=== PATIENT | female | born 1975 | race Caucasian/White ===

== ENCOUNTER 2019-06-07 12:52 | Inpatient (IN) ==
[2019-06-07] MEDS ORDERED: ONDANSETRON INJ 2 MG/ML 2 ML VIAL IV PRN ×2 (14:27→17:36)
[2019-06-07] MEDS ORDERED: MAGNESIUM HYDROXIDE SUSP 30 ML UDC PO PRN (14:27)
[2019-06-07] MEDS ORDERED: ALUMINUM/MAGNESIUM SUSP 30 ML UDC PO PRN (14:27)
[2019-06-07] MEDS ORDERED: ZOLPIDEM TARTRATE 5 MG TAB PO PRN (14:27)
[2019-06-07 16:33] LABS: Basophils # (auto) 0.02 K/uL (0-0.2); Basophils % (auto) 0.3 %; Eosinophils # (auto) 0.15 K/uL (0-0.5); Eosinophils % (auto) 2.1 %; Hematocrit (blood only) 35.4 % (37-47); Hemoglobin 11.9 g/dL (12.0-16.0); Immature Granulocytes # (auto) 0.01 K/uL (0.00-0.02); Immature Granulocytes % (auto) 0.1 %; Lymphocytes # (auto) 1.98 K/uL (1.2-3.4); Lymphocytes % (auto) 28.2 %; Mean Corpuscular Hemoglobin 29.5 pg (25-34); Mean Corpuscular Volume 87.8 fL (80-100); Monocytes # (auto) 0.66 K/uL (0.11-0.59); Monocytes % (auto) 9.4 %; Neutrophils # (auto) 4.19 K/uL (1.4-6.5); Neutrophils % (auto) 59.9 %; Platelet Count 374 K/uL (130-400); RDW Coefficient of Variation 13.9 % (11.5-14.5); RDW Standard Deviation 45.1 fL (36.4-46.3); Red Blood Count 4.03 M/uL (4.2-5.4); White Blood Count 7.01 K/uL (4.8-10.8)
[2019-06-07 16:44] LABS: Mean Corpuscular Hgb Conc 33.6 g/dL (32-36)
[2019-06-07 16:55] LABS: Alanine Aminotransferase 746 U/L (12-78); Amylase 59 U/L (25-115); Aspartate Aminotransferase 246 U/L (15-37); BUN Creatinine Ratio 8.4 (10-20); Blood Urea Nitrogen 4 mg/dl (7-18); Calcium 8.6 mg/dl (8.5-10.1); Carbon Dioxide 25 mmol/L (21-32); Chloride 109 mmol/L (98-107); Est GFR (African American) 134.6; Est GFR (Non-African American) 116.1; Glucose 85 mg/dl (70-99); Lipase 138 U/L (73-393); Potassium 4.2 mmol/L (3.5-5.1); Sodium 139 mmol/L (136-145)
[2019-06-07 17:06] LABS: Albumin Globulin Ratio 0.8 (0.9-2); Alkaline Phosphatase 294 U/L (45-117); Bilirubin,Total 1.6 mg/dl (0.2-1); Globulin 3.9 gm/dl (2.5-4.0); NT Pro B Type Natriuretic Pept 450 pg/ml (0-450); Total Protein 6.9 gm/dl (6.4-8.2)
--- NOTE | 2019-06-07 17:07 | History & Physical Report ---
Date of Service June 07, 2019 Assessment & Plan (1) Choledocholithiasis: Admit to PCU on telemetry Vital signs every 4 hours Replenish electrolytes Keep n.p.o. GI consult Trend down transaminases Check for MRCP Hold medical anticoagulation until GI evaluation and clarified if patient will need surgery or not Pain management and antinausea management. Gentle IV fluid hydration SCD and teds Full code Present on Admission?: Yes (2) Acute cholecystitis: As the above Waiting for MRCP results Consult general surgery Present on Admission?: Yes (3) Cerebellar atrophy: Stable, patient reports not taking any medication at home. Gets around in the wheelchair. Present on Admission?: Yes (4) Anemia: H&H 11.9/35.4. Not clear origin of anemia at this time. Will check iron studies and B12 and folate. Treatment to follow. Present on Admission?: Yes History of Present Illness Chief Complaint: Abdominal pain, acute cholecystitis possibly cholangitis. Primary Care Provider: Luke Sullivan MD 43 years old female with past medical history of cerebellar atrophy is direct admit from [facility] with concern that patient has acute cholecystitis and cholangitis. Patient was admitted to the hospital at [facility] with transaminitis AST 508, ALT 925, and bilirubin 2.3. While CT scan did not reveal acute cholecystitis right upper quadrant ultrasound was significant for edematous gallbladder and possible cholangitis. The case was discussed with Dr. Mila Bender orthotics prosthetics technician and he recommended patient to be transferred for MRCP and possibly ERCP if stone is to be found in the ducts. Patient denies fever chills, chest pain, shortness of breath, abdominal pain at this time but she said she had severe abdominal pain last time., Frequency, urgency, hematemesis, hematuria, dysuria. Due to cerebral atrophy that has been ongoing for several years patient gets around in the wheelchair. Labs are reviewed and showed viable cell count of 7.01, hemoglobin 11.9, hematocrit 35.4, platelets 374, sodium 139, potassium 4.2, chloride 109, BUN 4, creatinine 0.51, GFR 116, lactate 1, total bilirubin 1.6, AST 246, ALT 746, alkaline phosphatase 294, BNP 450, lipase 138, TSH 1.76. MRCP ordered and pending. Will consult gastroenterology for acute cholecystitis possibly acute cholangitis elevated transaminases and bilirubin. Patient admitted to PCU on telemetry. Past Med/Surg History Social History Communication Ability: Effective Adjuster Piano Action Required: No Beliefs That Will Affect Care: None Current Living Situation: Family Other Information That Helps Us Care for You: No Feels Safe at Home: Yes Safety Concerns: Feels Safe At This Time Smoking Status: Never smoker Hx Alcohol Use: No Hx Substance Use: No Review of Systems Review of Systems: All systems reviewed & are unremarkable except as noted in HPI & below Physical Exam Constitutional: WD/WN, vitals as above well developed Eyes: PERRL, conjunctivae normal, anicteric sclerae ENMT: external ear and nose normal, oropharynx normal Neck: trachea midline, no thyromegaly Respiratory: normal respiratory effort, lungs clear to auscultation Cardiovascular: RRR, no murmur, no edema Heart Sounds: normal S1 and normal S2 Vessels: dorsalis pedis pulses present Gastrointestinal (Abdomen): normal bowel sounds, soft, nontender, no hepatosplenomegaly Inspection/Auscultation: normal bowel sounds Musculoskeletal: Due to cerebellar atrophy patient has chronic ataxia, scattered speech, jerking movements of the legs and arms. Patient also has contracture of her wrists bilaterally Skin: no rashes, warm and dry Neurologic: Due to cerebellar atrophy patient has chronic ataxia, scattered speech, jerking movements of the legs and arms. Patient also has contracture of her wrists bilaterally Psychiatric: A+Ox3, euthymic affect Lymphatic: no cervical or axillary lymphadenopathy Results & Data Vital Signs (Past 12 Hours) Vital Signs Temp Pulse Pulse Resp BP Pulse Ox 06/07/19 14:27 36.8 C 80 68 20 128/89 98 Code Status & VTE Plan Code Status Full code VTE Prophylaxis Plan VTE Prophylaxis will be ordered: No PG Care Time/CCT Total # of Minutes Spent Total Time Spent with Patient: Total time spent is greater than 50% in coordination of care (as documented) at patient's floor/unit and/or counseling patient:
[2019-06-07] MEDS ORDERED: OXYCODONE/ACETAMINOPHEN 5mg/325mg TAB PO PRN (17:36)
[2019-06-07] MEDS: SODIUM CHLORIDE 0.9% 1000ML 1,000 ML IV SCH (17:48)
--- NOTE | 2019-06-07 18:44 | Surgery Consultation ---
Date of Consultation June 07, 2019 Assessment & Plan (1) Choledocholithiasis: This patient has elevated LFTs. The ultrasound is not available to know whether or not she has cholelithiasis. The CT scan may have been indicative of acute cholecystitis but the patient is presently pain-free. She is scheduled for an MRCP and will await that result. Would like to see the ultrasound report to see whether or not there actually is cholelithiasis. If acute cholecystitis is suspected then a hepatobiliary scan would be in order. There is no indication for immediate surgical intervention at this time. History of Present Illness Reason for Consultation: Abdominal pain and elevated liver function tests Requesting Physician: Michael Mclean MD Attending Physician: Michael Mclean MD History of Present Illness I have been asked by Dr. Mclean to see this 43-year-old female who was transferred from [facility] after being admitted there with abdominal pain and nausea. She has had 3 episodes of this discomfort. The first was a year ago. The second 1 was 3 days ago and the other one started yesterday. The discomfort is mostly in the upper abdomen but also in the periumbilical region and radiates to the right subcostal region and around to her back. It is associated with nausea but she did not vomit although she did have some dry heaves at one point during this episode. She was admitted to the hospital where CT scan did not show evidence of cholecystitis however right upper quadrant ultrasound demonstrated evidence of cholecystitis. I do not have the results of that study in front of me and I am unsure as to whether or not cholelithiasis was identified. She was found to have LFT elevation as well. She does not think she had fever at that time. Her bowels have been moving well without melena or hematochezia and she has no dysuria or hematuria. At the present time she is pain-free. She has no nausea. 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 Beliefs That Will Affect Care: None Current Living Situation: Family Other Information That Helps Us Care for You: No Feels Safe at Home: Yes Safety Concerns: Feels Safe At This Time Smoking Status: Never smoker Hx Alcohol Use: No Hx Substance Use: No Physical Exam Constitutional: no acute distress Neck: trachea midline Respiratory: normal respiratory effort, lungs clear to auscultation Cardiovascular: Rate/Rhythm: regular rate and regular rhythm Gastrointestinal (Abdomen): normal bowel sounds, soft, nontender, no hepatosplenomegaly Skin: no rashes, warm and dry Lymphatic: no cervical lymphadenopathy Results & Data Vital Signs (Past 12 Hours) Vital Signs Temp Pulse Pulse Resp BP Pulse Ox 06/07/19 14:27 36.8 C 80 68 20 128/89 98 Laboratory Results 06/07/19 06/07/19 06/07/19 Range/Units 16:22 16:22 16:22 WBC 7.01 (4.8-10.8) K/uL RBC 4.03 L (4.2-5.4) M/uL Hgb 11.9 L (12.0-16.0) g/dL Hct 35.4 L (37-47) % MCV 87.8 (80-100) fL MCH 29.5 (25-34) pg MCHC 33.6 (32-36) g/dL RDW Std Deviation 45.1 (36.4-46.3) fL RDW Coeff of Maria De Jesus 13.9 (11.5-14.5) % Plt Count 374 (130-400) K/uL MPV 9.0 (7.4-10.4) fL Immature Gran % (Auto) 0.1 % Neut % (Auto) 59.9 % Lymph % (Auto) 28.2 % Prentiss % (Auto) 9.4 % Eos % (Auto) 2.1 % Baso % (Auto) 0.3 % Immature Gran # (Auto) 0.01 (0.00-0.02) K/uL Neut # (Auto) 4.19 (1.4-6.5) K/uL Lymph # (Auto) 1.98 (1.2-3.4) K/uL Prentiss # (Auto) 0.66 H (0.11-0.59) K/uL Eos # (Auto) 0.15 (0-0.5) K/uL Baso # (Auto) 0.02 (0-0.2) K/uL Sodium 139 (136-145) mmol/L Potassium 4.2 (3.5-5.1) mmol/L Chloride 109 H (98-107) mmol/L Carbon Dioxide 25 (21-32) mmol/L Anion Gap 5.0 (3-11) BUN 4 L (7-18) mg/dl Creatinine 0.51 L (0.6-1.2) mg/dl Est Cr Clr Drug Dosing Not Reportable Est GFR ( Amer) 134.6 Est GFR (Non-Af Amer) 116.1 BUN/Creatinine Ratio 8.4 L (10-20) Glucose 85 (70-99) mg/dl Lactate 1.0 (0.4-2.0) mmol/L Calcium 8.6 (8.5-10.1) mg/dl Total Bilirubin 1.6 H (0.2-1) mg/dl AST 246 H (15-37) U/L ALT 746 H (12-78) U/L Alkaline Phosphatase 294 H (45-117) U/L NT-Pro-B Natriuret Pep 450 (0-450) pg/ml Total Protein 6.9 (6.4-8.2) gm/dl Albumin 3.0 L (3.4-5.0) gm/dl Globulin 3.9 (2.5-4.0) gm/dl Albumin/Globulin Ratio 0.8 L (0.9-2) Amylase 59 (25-115) U/L Lipase 138 (73-393) U/L TSH 1.760 (0.300-4.500) uIu/ml
[2019-06-07] MEDS ORDERED: KETOROLAC TROMETHAMINE 15 MG/ML VIAL IV PRN (19:09)
--- NOTE | 2019-06-07 22:39 | Magnetic Resonance Report ---
MR MRCP CLINICAL HISTORY: 43 years-old Female presenting with acute cholecystitis, choledocholithiasis. TECHNIQUE: Multisequence, multiplanar MR imaging of the abdomen was performed without the use of intr avenous contrast. Dedicated MRCP protocol was utilized. 3-D volumetric and/or maximum intensity proje ction (MIP) images were subsequently reconstructed for review. IV contrast: None. COMPARISON: Ultrasound and CT performed today and yesterday, respectively, at an outside hospital. FINDINGS: Localizer images: Unremarkable. Lung bases: Normal heart size. No pericardial or pleural effusion. Lung base clear. Liver: Normal morphology. Biliary: MRCP sequences mildly degraded by motion artifact. This in turn mildly limits diagnostic sen sitivity the exam. Conventional intrahepatic biliary bifurcation is suspected. No filling defects wit hin the intrahepatic or extra hepatic bile ducts. No intrahepatic or extrahepatic biliary ductal dila tation. Gallbladder contains gallstones. Exuberant gallbladder wall thickening. The gallbladder is on ly mildly distended. Pancreas: Normal noncontrast appearance. Spleen: Normal noncontrast appearance. Adrenal glands: Normal noncontrast appearance. Kidneys and ureters: Normal noncontrast appearance. No hydronephrosis. Normal ureters. Bowel: Normal noncontrast appearance. No bowel obstruction. Peritoneal cavity: No free fluid. Lymph nodes: No gross lymphadenopathy allowing for noncontrast technique. Vasculature: Normal noncontrast appearance. Abdominal wall: Normal. Musculoskeletal: Normal. IMPRESSION: 1. Cholelithiasis with exuberant gallbladder wall thickening concerning for acute calculus cholecyst itis. This could be confirmed with HIDA scan if there is clinical necessity. Surgical consultation is necessary. 2. Allowing for motion artifact degradation, no evidence of choledocholithiasis or biliary ductal di latation. Electronically signed by: Forest Denson M.D. 06/07/2019 10:37 PM
[2019-06-08 05:44] LABS: Basophils # (auto) 0.02 K/uL (0-0.2); Basophils % (auto) 0.2 %; Eosinophils # (auto) 0.07 K/uL (0-0.5); Eosinophils % (auto) 0.9 %; Hematocrit (blood only) 33.6 % (37-47); Hemoglobin 11.2 g/dL (12.0-16.0); Immature Granulocytes # (auto) 0.01 K/uL (0.00-0.02); Immature Granulocytes % (auto) 0.1 %; Lymphocytes # (auto) 1.81 K/uL (1.2-3.4); Lymphocytes % (auto) 22.3 %; Mean Corpuscular Hemoglobin 29.9 pg (25-34); Mean Corpuscular Hgb Conc 33.3 g/dL (32-36); Mean Corpuscular Volume 89.8 fL (80-100); Monocytes # (auto) 0.56 K/uL (0.11-0.59); Monocytes % (auto) 6.9 %; Neutrophils # (auto) 5.66 K/uL (1.4-6.5); Neutrophils % (auto) 69.6 %; Platelet Count 354 K/uL (130-400); RDW Standard Deviation 46.3 fL (36.4-46.3); Red Blood Count 3.74 M/uL (4.2-5.4); Reticulocyte % 1.3 % (0.5-2.0); Reticulocytes # 0.05 10^6/uL (0.02-0.10); White Blood Count 8.13 K/uL (4.8-10.8)
[2019-06-08 06:19] LABS: Albumin Globulin Ratio 0.8 (0.9-2); BUN Creatinine Ratio 31.9 (10-20); Bilirubin,Total 1.1 mg/dl (0.2-1); Calcium 8.4 mg/dl (8.5-10.1); Creatinine Clr Calc Pharmacy 164.9 ml/min; Est GFR (African American) 149.6; Est GFR (Non-African American) 129.1; Ferritin 135.8 ng/ml (8-388); Globulin 3.6 gm/dl (2.5-4.0); Potassium 3.8 mmol/L (3.5-5.1); Total Protein 6.6 gm/dl (6.4-8.2)
[2019-06-08] MEDS: SODIUM CHLORIDE 0.9% 1000ML 1,000 ML IV SCH ×2 (06:23→16:41)
--- NOTE | 2019-06-08 08:51 | Hospitalist Progress Note ---
Date of Service June 08, 2019 Assessment & Plan (1) Choledocholithiasis: (2) Acute cholecystitis: I suspect patient has acute cholecystitis. Possible choledocholithiasis that has since passed with improvement in her LFTs. HIDA scan is ordered but has not yet been performed. General surgery as well as GI are following the patient. I suspect patient may ultimately require cholecystectomy and will keep patient n.p.o. for now. Continue IV fluids and monitor lab work. Patient is no longer having pain but continues IV opioids as needed. Hold any anticoagulation for possible pending procedure. (3) Cerebellar atrophy: Stable, patient reports not taking any medication at home. Gets around in the wheelchair. (4) Anemia: Stable for now, continue to monitor. Subjective Patient seen and examined. She is feeling better today and has not no further abdominal pain. She has been n.p.o. and denies any nausea or vomiting. Work-up in progress for possible acute cholecystitis and HIDA scan was ordered and pending. Review of Systems Review of Systems: All systems reviewed & are unremarkable except as noted in HPI & below Physical Exam Physical Exam: GENERAL: Non-toxic in appearance. Nonjaundiced and anicteric INTEGUMENTARY: Warm, dry, and [place]. HEAD: Normocephalic. EYES: without scleral icterus or trauma. ENT/OROPHARYNX: clear and moist. LYMPHADENOPATHY/NECK: Is supple without lymphadenopathy or meningismus. RESPIRATORY: Lungs clear and equal. CARDIOVASCULAR: Regular rate and rhythm. GI/ABDOMEN: Soft and nontender. Good bowel sounds, no tenderness to palpation. EXTREMITIES: Warm and well perfused. BACK: No CVA tenderness. NEUROLOGICAL: Chronic cerebellar deficits PSYCHIATRIC: normal affect. MUSCULOSKELETAL: Normally developed with good muscle tone. Results & Data Vital Signs (Past 12 Hours) Vital Signs Temp Pulse Pulse Resp BP Pulse Ox 06/08/19 07:01 36.6 C 82 19 106/69 97 06/08/19 05:12 36.7 C 79 19 111/74 98 06/08/19 00:08 69 06/07/19 23:15 36.8 C 65 20 114/65 98 Diagnostic Findings MR MRCP CLINICAL HISTORY: 43 years-old Female presenting with acute cholecystitis, choledocholithiasis. TECHNIQUE: Multisequence, multiplanar MR imaging of the abdomen was performed without the use of intravenous contrast. Dedicated MRCP protocol was utilized. 3-D volumetric and/or maximum intensity projection (MIP) images were subsequently reconstructed for review. IV contrast: None. COMPARISON: Ultrasound and CT performed today and yesterday, respectively, at an outside hospital. FINDINGS: Localizer images: Unremarkable. Lung bases: Normal heart size. No pericardial or pleural effusion. Lung base clear. Liver: Normal morphology. Biliary: MRCP sequences mildly degraded by motion artifact. This in turn mildly limits diagnostic sensitivity the exam. Conventional intrahepatic biliary bifurcation is suspected. No filling defects within the intrahepatic or extra hepatic bile ducts. No intrahepatic or extrahepatic biliary ductal dilatation. Gallbladder contains gallstones. Exuberant gallbladder wall thickening. The gallbladder is only mildly distended. Pancreas: Normal noncontrast appearance. Spleen: Normal noncontrast appearance. Adrenal glands: Normal noncontrast appearance. Kidneys and ureters: Normal noncontrast appearance. No hydronephrosis. Normal ureters. Bowel: Normal noncontrast appearance. No bowel obstruction. Peritoneal cavity: No free fluid. Lymph nodes: No gross lymphadenopathy allowing for noncontrast technique. Vasculature: Normal noncontrast appearance. Abdominal wall: Normal. Musculoskeletal: Normal. IMPRESSION: 1. Cholelithiasis with exuberant gallbladder wall thickening concerning for acute calculus cholecystitis. This could be confirmed with HIDA scan if there is clinical necessity. Surgical consultation is necessary. 2. Allowing for motion artifact degradation, no evidence of choledocholithiasis or biliary ductal dilatation. PG Care Time/CCT Total # of Minutes Spent Total Time Spent with Patient: Total time spent is greater than 50% in coordination of care (as documented) at patient's floor/unit and/or counseling patient:
--- NOTE | 2019-06-08 09:54 | Gastrointestinal Consultation ---
Date of Consultation June 08, 2019 Assessment & Plan (1) Elevated LFTs: (2) Gallstone: (3) Cholecystitis: Pt is a 43 y/o female presented w RLQ abd pain, nausea and elevated LFTs. Imaging studies including outside U/S, CT, and MRCP obtained last night showed signs of gallstones w gallbladder wall thickening but normal appearing liver w/o biliary dilation or filling defect. On my exam today she has RLQ and RUQ tenderness. She also did mention that on last occasion, pain onset is triggered after eating hotdog. Suspect cholecystitis - IV antibx coverage - Trend LFTs - HIDA to be obtained this AM - Will review case w my attending, however suspect less likely she has choledocholithiasis thus no indication for ERCP - Surgery following, appreciate recs. If planning to take pt for cholecystectomy, recommend possibly to do intraop cholangiogram Supervising Physician Co-Signing Physician Notes Pt seen and examined with JUAN ANTONIO Cervantes. Her note reflects my exam and findings. I agree with her impression and plan. No indication for ERCP. Confirm patient has had testing for chronic hepatitis in past. Ki Murcia M.D. History of Present Illness Reason for Consultation: Elevated LFTs, eval for cholecystitis and choledocholithiasis Requesting Physician: Dr. Michael Mclean Attending Physician: Dr. Ki Murcia History of Present Illness Pt is a 43 y/o female transferred from [facility] for suspected cholecystitis. She had been c/o RLQ abd pain x 3 episodes in last year - first episode last June, second last weekend, third 3 days ago. She reports sometimes eating can trigger the pain. A few days ago had hotdog and within 10 mins or so started to have RLQ abd pain radiating to lower back. She denies any associated fever, chills. + mild nausea, no vomiting. Denies bowel habit changes. Last BM 2 days ago w/o signs of GI bleeding. Her labs are notable for elevated LFTs: Tibli 1.1, AST 130, ALT 583, AP 273, lipase normal at 138. LFTs today were improved from previously on admission. She had several imaging studies including U/S, CT from [facility] - indicative for gallstone and gallbladder thickening suspicious for cholecystitis. Liver normal appearing w no signs of biliary dilation or filling defect on CBD. She had been evaluated by Surgery team and going to have HIDA scan this AM. 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 Beliefs That Will Affect Care: None Current Living Situation: Family Other Information That Helps Us Care for You: No Feels Safe at Home: Yes Safety Concerns: Feels Safe At This Time Smoking Status: Never smoker Hx Alcohol Use: No Hx Substance Use: No Review of Systems Review of Systems: All systems reviewed & are unremarkable except as noted in HPI & below Physical Exam Constitutional: WD/WN, vitals as above well groomed, cooperative and comfortable Eyes: PERRL, conjunctivae normal, anicteric sclerae ENMT: external ear and nose normal, oropharynx normal Respiratory: normal respiratory effort, lungs clear to auscultation Cardiovascular: RRR, no murmur, no edema Gastrointestinal (Abdomen): Inspection/Auscultation: + hypoactive bowel sounds Percussion/Palpation: + abdomen tender (RLQ, RUQ) and abdomen soft Musculoskeletal: Contractures on fingers - hx of cerebellar atrophy Skin: no rashes, warm and dry no jaundice Neurologic: Motor/Sensory: no asterixis Psychiatric: A+Ox3, euthymic affect Lymphatic: no lymphedema Results & Data Vital Signs (Past 12 Hours) Vital Signs Temp Pulse Pulse Resp BP Pulse Ox 06/08/19 07:01 36.6 C 82 19 106/69 97 06/08/19 05:12 36.7 C 79 19 111/74 98 06/08/19 00:08 69 06/07/19 23:15 36.8 C 65 20 114/65 98
--- NOTE | 2019-06-08 12:00 | Nuclear Medicine Report ---
NUCLEAR HEPATOBILIARY SCAN CLINICAL HISTORY: Acute cholecystitis. COMPARISON STUDY: MRCP dated 06/07/2019. Abdominal ultrasound dated 06/07/2019. Abdominal CT dated . TECHNIQUE: Dynamic images of the liver and anterior abdomen were obtained every 5 minutes for a total of 60 minutes following the IV administration of 5.5mCi of technetium 99m Choletec. FINDINGS: The hepatobiliary scan shows prompt and homogeneous hepatic uptake. There is visualized act ivity within the intra and extrahepatic biliary tree at 10 minutes, and within the gallbladder at 25 minutes. There is normal biliary to bowel transit, with small bowel visualized by 15 minutes. IMPRESSION: There is no scintigraphic evidence of cystic duct obstruction. The MRCP and ultrasound fi ndings remain consistent with acute cholecystitis. Electronically signed by: Bernardo Ortega M.D. 06/08/2019 11:59 AM
[2019-06-08] MEDS: cefOXitin 2,000 MG in DEXTROSE 5% 50 ML IV SCH ×3 (12:09→21:39)
[2019-06-08 12:42] LABS: Folate (Folic Acid) 10.2 ng/ml (>5.38)
--- NOTE | 2019-06-08 14:17 | Surgery Progress Note ---
Date of Service June 08, 2019 Assessment & Plan (1) Cholecystitis: MRCP and HIDA scan showing no signs of biliary obstruction. HIDA scan showing no cystic duct obstruction with radiotracer uptake in gallbladder in 25 minutes and small bowel in 15 minutes. No leukocytosis. Afebrile. T. bili and LFTS improving. Plan: Since HIDA scan negative for biliary/cystic duct obstruction, would recommend continuation of antibiotics to allow gallbladder inflammation to improve prior to entertaining cholecystectomy. Recommend outpatient cholecystectomy in about 4-6 weeks. Advised patient she must adhere to low fat diet up until gallbladder is removed Antibiotics for total of two weeks recommended Can have clear liquids today, if pain increases with liquids may need to consider cholecystectomy sooner repeat t. bili and lfts tomorrow IV Cefoxitin started, continue q 6 hours continue medical management (2) Elevated LFTs: T. bili and LFTS improving T. bili 1.6 --> 1.1 AST 246 --> 130 ALT 746 --> 583 Alk 294 --> 273 Plan as above (3) Gallstone: Plan as above Dr. Barlow has seen and examined patient, agrees with above. Subjective has some tenderness in upper abdomen on examination some nausea and small amount of bilious vomiting last night, nothing today went for HIDA scan today Physical Exam Constitutional: WD/WN, vitals as above no acute distress Gastrointestinal (Abdomen): Inspection/Auscultation: abdomen normal to inspection; abdomen not distended Percussion/Palpation: + abdomen tender (RUQ on deep palpation) and abdomen soft; no guarding and abdomen not rigid Skin: no rashes, warm and dry Psychiatric: A+Ox3, euthymic affect Results & Data Vital Signs (Past 12 Hours) Vital Signs Temp Pulse Pulse Resp BP Pulse Ox 06/08/19 09:46 74 06/08/19 07:01 36.6 C 82 19 106/69 97 06/08/19 05:12 36.7 C 79 19 111/74 98 Laboratory Results 06/08/19 06/08/19 06/08/19 Range/Units 05:28 05:28 05:28 WBC 8.13 (4.8-10.8) K/uL RBC 3.74 L (4.2-5.4) M/uL Hgb 11.2 L (12.0-16.0) g/dL Hct 33.6 L (37-47) % MCV 89.8 (80-100) fL MCH 29.9 (25-34) pg MCHC 33.3 (32-36) g/dL RDW Std Deviation 46.3 (36.4-46.3) fL RDW Coeff of Maria De Jesus 14.0 (11.5-14.5) % Plt Count 354 (130-400) K/uL MPV 9.0 (7.4-10.4) fL Immature Gran % (Auto) 0.1 % Neut % (Auto) 69.6 % Lymph % (Auto) 22.3 % [place] % (Auto) 6.9 % Eos % (Auto) 0.9 % Baso % (Auto) 0.2 % Reticulocyte % (Auto) 1.3 (0.5-2.0) % Immature Gran # (Auto) 0.01 (0.00-0.02) K/uL Neut # (Auto) 5.66 (1.4-6.5) K/uL Lymph # (Auto) 1.81 (1.2-3.4) K/uL [place] # (Auto) 0.56 (0.11-0.59) K/uL Eos # (Auto) 0.07 (0-0.5) K/uL Baso # (Auto) 0.02 (0-0.2) K/uL Reticulocyte # 0.05 (0.02-0.10) 10^6/uL Sodium 139 (136-145) mmol/L Potassium 3.8 (3.5-5.1) mmol/L Chloride 110 H (98-107) mmol/L Carbon Dioxide 16 L (21-32) mmol/L Anion Gap 13.0 H (3-11) BUN 12 D (7-18) mg/dl Creatinine 0.37 L (0.6-1.2) mg/dl Est Cr Clr Drug Dosing 164.9 Est GFR ( Amer) 149.6 Est GFR (Non-Af Amer) 129.1 BUN/Creatinine Ratio 31.9 H (10-20) Glucose 54 L (70-99) mg/dl Lactate (0.4-2.0) mmol/L Calcium 8.4 L (8.5-10.1) mg/dl TIBC 275 (250-450) mcg/dl Ferritin 135.8 (8-388) ng/ml Total Bilirubin 1.1 H (0.2-1) mg/dl AST 130 H (15-37) U/L ALT 583 H (12-78) U/L Alkaline Phosphatase 273 H (45-117) U/L NT-Pro-B Natriuret Pep (0-450) pg/ml Total Protein 6.6 (6.4-8.2) gm/dl Albumin 3.0 L (3.4-5.0) gm/dl Globulin 3.6 (2.5-4.0) gm/dl Albumin/Globulin Ratio 0.8 L (0.9-2) Amylase (25-115) U/L Lipase (73-393) U/L Vitamin B12 416 (211-911) pg/ml Folate 10.20 (>5.38) ng/ml TSH (0.300-4.500) uIu/ml 06/07/19 06/07/19 06/07/19 Range/Units 16:22 16:22 16:22 WBC 7.01 (4.8-10.8) K/uL RBC 4.03 L (4.2-5.4) M/uL Hgb 11.9 L (12.0-16.0) g/dL Hct 35.4 L (37-47) % MCV 87.8 (80-100) fL MCH 29.5 (25-34) pg MCHC 33.6 (32-36) g/dL RDW Std Deviation 45.1 (36.4-46.3) fL RDW Coeff of Maria De Jesus 13.9 (11.5-14.5) % Plt Count 374 (130-400) K/uL MPV 9.0 (7.4-10.4) fL Immature Gran % (Auto) 0.1 % Neut % (Auto) 59.9 % Lymph % (Auto) 28.2 % [place] % (Auto) 9.4 % Eos % (Auto) 2.1 % Baso % (Auto) 0.3 % Reticulocyte % (Auto) (0.5-2.0) % Immature Gran # (Auto) 0.01 (0.00-0.02) K/uL Neut # (Auto) 4.19 (1.4-6.5) K/uL Lymph # (Auto) 1.98 (1.2-3.4) K/uL [place] # (Auto) 0.66 H (0.11-0.59) K/uL Eos # (Auto) 0.15 (0-0.5) K/uL Baso # (Auto) 0.02 (0-0.2) K/uL Reticulocyte # (0.02-0.10) 10^6/uL Sodium 139 (136-145) mmol/L Potassium 4.2 (3.5-5.1) mmol/L Chloride 109 H (98-107) mmol/L Carbon Dioxide 25 (21-32) mmol/L Anion Gap 5.0 (3-11) BUN 4 L (7-18) mg/dl Creatinine 0.51 L (0.6-1.2) mg/dl Est Cr Clr Drug Dosing Not Reportable Est GFR ( Amer) 134.6 Est GFR (Non-Af Amer) 116.1 BUN/Creatinine Ratio 8.4 L (10-20) Glucose 85 (70-99) mg/dl Lactate 1.0 (0.4-2.0) mmol/L Calcium 8.6 (8.5-10.1) mg/dl TIBC (250-450) mcg/dl Ferritin (8-388) ng/ml Total Bilirubin 1.6 H (0.2-1) mg/dl AST 246 H (15-37) U/L ALT 746 H (12-78) U/L Alkaline Phosphatase 294 H (45-117) U/L NT-Pro-B Natriuret Pep 450 (0-450) pg/ml Total Protein 6.9 (6.4-8.2) gm/dl Albumin 3.0 L (3.4-5.0) gm/dl Globulin 3.9 (2.5-4.0) gm/dl Albumin/Globulin Ratio 0.8 L (0.9-2) Amylase 59 (25-115) U/L Lipase 138 (73-393) U/L Vitamin B12 (211-911) pg/ml Folate (>5.38) ng/ml TSH 1.760 (0.300-4.500) uIu/ml Diagnostic Findings MR MRCP CLINICAL HISTORY: 43 years-old Female presenting with acute cholecystitis, choledocholithiasis. TECHNIQUE: Multisequence, multiplanar MR imaging of the abdomen was performed without the use of intravenous contrast. Dedicated MRCP protocol was utilized. 3-D volumetric and/or maximum intensity projection (MIP) images were subsequently reconstructed for review. IV contrast: None. COMPARISON: Ultrasound and CT performed today and yesterday, respectively, at an outside hospital. FINDINGS: Localizer images: Unremarkable. Lung bases: Normal heart size. No pericardial or pleural effusion. Lung base clear. Liver: Normal morphology. Biliary: MRCP sequences mildly degraded by motion artifact. This in turn mildly limits diagnostic sensitivity the exam. Conventional intrahepatic biliary bifurcation is suspected. No filling defects within the intrahepatic or extra hepatic bile ducts. No intrahepatic or extrahepatic biliary ductal dilatation. Gallbladder contains gallstones. Exuberant gallbladder wall thickening. The gallbladder is only mildly distended. Pancreas: Normal noncontrast appearance. Spleen: Normal noncontrast appearance. Adrenal glands: Normal noncontrast appearance. Kidneys and ureters: Normal noncontrast appearance. No hydronephrosis. Normal ureters. Bowel: Normal noncontrast appearance. No bowel obstruction. Peritoneal cavity: No free fluid. Lymph nodes: No gross lymphadenopathy allowing for noncontrast technique. Vasculature: Normal noncontrast appearance. Abdominal wall: Normal. Musculoskeletal: Normal. IMPRESSION: 1. Cholelithiasis with exuberant gallbladder wall thickening concerning for acute calculus cholecystitis. This could be confirmed with HIDA scan if there is clinical necessity. Surgical consultation is necessary. 2. Allowing for motion artifact degradation, no evidence of choledocholithiasis or biliary ductal dilatation. NUCLEAR HEPATOBILIARY SCAN CLINICAL HISTORY: Acute cholecystitis. COMPARISON STUDY: MRCP dated 06/07/2019. Abdominal ultrasound dated 06/07/2019. Abdominal CT dated 06/06/2019. TECHNIQUE: Dynamic images of the liver and anterior abdomen were obtained every 5 minutes for a total of 60 minutes following the IV administration of 5.5mCi of technetium 99m Choletec. FINDINGS: The hepatobiliary scan shows prompt and homogeneous hepatic uptake. There is visualized activity within the intra and extrahepatic biliary tree at 10 minutes, and within the gallbladder at 25 minutes. There is normal biliary to bowel transit, with small bowel visualized by 15 minutes. IMPRESSION: There is no scintigraphic evidence of cystic duct obstruction. The MRCP and ultrasound findings remain consistent with acute cholecystitis.
[2019-06-09] MEDS: cefOXitin 2,000 MG in DEXTROSE 5% 50 ML IV SCH ×2 (03:53→08:59)
[2019-06-09] MEDS: SODIUM CHLORIDE 0.9% 1000ML 1,000 ML IV SCH (05:11)
[2019-06-09 06:17] LABS: Basophils # (auto) 0.02 K/uL (0-0.2); Basophils % (auto) 0.3 %; Eosinophils # (auto) 0.17 K/uL (0-0.5); Eosinophils % (auto) 2.5 %; Hematocrit (blood only) 34.1 % (37-47); Immature Granulocytes # (auto) 0.02 K/uL (0.00-0.02); Immature Granulocytes % (auto) 0.3 %; Lymphocytes # (auto) 1.78 K/uL (1.2-3.4); Lymphocytes % (auto) 26.4 %; Mean Corpuscular Hemoglobin 28.9 pg (25-34); Mean Corpuscular Hgb Conc 32.3 g/dL (32-36); Mean Corpuscular Volume 89.5 fL (80-100); Mean Platelet Volume 9.3 fL (7.4-10.4); Monocytes # (auto) 0.76 K/uL (0.11-0.59); Monocytes % (auto) 11.3 %; Neutrophils % (auto) 59.2 %; Platelet Count 360 K/uL (130-400); RDW Coefficient of Variation 13.8 % (11.5-14.5); RDW Standard Deviation 45.5 fL (36.4-46.3); Red Blood Count 3.81 M/uL (4.2-5.4); White Blood Count 6.75 K/uL (4.8-10.8)
[2019-06-09 06:49] LABS: Albumin Globulin Ratio 0.8 (0.9-2); Albumin Level 2.7 gm/dl (3.4-5.0); Calcium 8.2 mg/dl (8.5-10.1); Creatinine Clr Calc Pharmacy 84.1 ml/min; Est GFR (African American) 109.8; Est GFR (Non-African American) 94.7; Globulin 3.6 gm/dl (2.5-4.0); Potassium 3.4 mmol/L (3.5-5.1); Total Protein 6.3 gm/dl (6.4-8.2)
[2019-06-09 07:37] VITALS: BP 137/84; TEMP 97.9; O2SAT 98
--- NOTE | 2019-06-09 09:05 | Discharge Summary ---
Date of Service June 09, 2019 Admission HPI Per Admitting Provider 43 years old female with past medical history of cerebellar atrophy is direct admit from [facility] with concern that patient has acute cholecystitis and cholangitis. Patient was admitted to the hospital at [facility] with transaminitis AST 508, ALT 925, and bilirubin 2.3. While CT scan did not reveal acute cholecystitis right upper quadrant ultrasound was significant for edematous gallbladder and possible cholangitis. The case was discussed with Dr. Mila Bender paint stockman and he recommended patient to be transferred for MRCP and possibly ERCP if stone is to be found in the d ucts. Patient denies fever chills, chest pain, shortness of breath, abdominal pain at this time but she said she had severe abdominal pain last time., Frequency, urgency, hematemesis, hematuria, dysuria. Due to cerebral atrophy that has been ongoing for several years patient gets around in the wheelchair. Labs are reviewed and showed viable cell count of 7.01, hemoglobin 11.9, hematocrit 35.4, platelets 374, sodium 139, potassium 4.2, chloride 109, BUN 4, creatinine 0.51, GFR 116, lactate 1, total bilirubin 1.6, AST 246, ALT 746, alkaline phosphatase 294, BNP 450, lipase 138, TSH 1.76. MRCP ordered and pending. Will consult gastroenterology for acute cholecystitis possibly acute cholangitis elevated transaminases and bilirubin. Patient admitted to PCU on telemetry. Admission Exam Per Admitting Provider Constitutional: WD/WN, vitals as above well developed Eyes: PERRL, conjunctivae normal, anicteric sclerae ENMT: external ear and nose normal, oropharynx normal Neck: trachea midline, no thyromegaly Respiratory: normal respiratory effort, lungs clear to auscultation Cardiovascular: RRR, no murmur, no edema Heart Sounds: normal S1 and normal S2 Vessels: dorsalis pedis pulses present Gastrointestinal (Abdomen): normal bowel sounds, soft, nontender, no hepatosplenomegaly Inspection/Auscultation: normal bowel sounds Musculoskeletal: Due to cerebellar atrophy patient has chronic ataxia, scattered speech, jerking movements of the legs and arms. Patient also has contracture of her wrists bilaterally Skin: no rashes, warm and dry Neurologic: Due to cerebellar atrophy patient has chronic ataxia, scattered speech, jerking movements of the legs and arms. Patient also has contracture of her wrists bilaterally Psychiatric: A+Ox3, euthymic affect Lymphatic: no cervical or axillary lymphadenopathy Principal Diagnosis 1. Acute cholecystitis 2. Abnormal LFTs 3. Cerebellar atrophy by history Discharge Exam GENERAL: Non-toxic in appearance. Nonjaundiced and anicteric. INTEGUMENTARY: Warm, dry, and [place]. HEAD: Normocephalic. EYES: without scleral icterus or trauma. ENT/OROPHARYNX: clear and moist. LYMPHADENOPATHY/NECK: Is supple without lymphadenopathy or meningismus. RESPIRATORY: Lungs clear and equal. CARDIOVASCULAR: Regular rate and rhythm. GI/ABDOMEN: Soft and nontender. No organomegaly or pulsatile mass. No rebound or guarding. Normal bowel sounds. EXTREMITIES: Warm and well perfused. BACK: No CVA tenderness. NEUROLOGICAL: Chronic cerebellar deficits as baseline. No new focal findings. PSYCHIATRIC: normal affect. MUSCULOSKELETAL: Normally developed with good muscle tone. Discharge Data Allergies Allergy/AdvReac Type Severity Reaction Status Date / Time No Known Allergies Allergy Unverified 06/08/19 13:18 Consultations 06/07/19 16:52 Consult Gastroenterology Routine 06/07/19 17:32 Consult General Surgery Routine Ordered Studies 06/07/19 16:50 MR MRCP Routine MR MRCP CLINICAL HISTORY: 43 years-old Female presenting with acute cholecystitis, choledocholithiasis. TECHNIQUE: Multisequence, multiplanar MR imaging of the abdomen was performed without the use of intravenous contrast. Dedicated MRCP protocol was utilized. 3-D volumetric and/or maximum intensity projection (MIP) images were subsequently reconstructed for review. IV contrast: None. COMPARISON: Ultrasound and CT performed today and yesterday, respectively, at an outside hospital. FINDINGS: Localizer images: Unremarkable. Lung bases: Normal heart size. No pericardial or pleural effusion. Lung base clear. Liver: Normal morphology. Biliary: MRCP sequences mildly degraded by motion artifact. This in turn mildly limits diagnostic sensitivity the exam. Conventional intrahepatic biliary bifurcation is suspected. No filling defects within the intrahepatic or extra hepatic bile ducts. No intrahepatic or extrahepatic biliary ductal dilatation. Gallbladder contains gallstones. Exuberant gallbladder wall thickening. The gallbladder is only mildly distended. Pancreas: Normal noncontrast appearance. Spleen: Normal noncontrast appearance. Adrenal glands: Normal noncontrast appearance. Kidneys and ureters: Normal noncontrast appearance. No hydronephrosis. Normal u reters. Bowel: Normal noncontrast appearance. No bowel obstruction. Peritoneal cavity: No free fluid. Lymph nodes: No gross lymphadenopathy allowing for noncontrast technique. Vasculature: Normal noncontrast appearance. Abdominal wall: Normal. Musculoskeletal: Normal. IMPRESSION: 1. Cholelithiasis with exuberant gallbladder wall thickening concerning for acute calculus cholecystitis. This could be confirmed with HIDA scan if there is clinical necessity. Surgical consultation is necessary. 2. Allowing for motion artifact degradation, no evidence of choledocholithiasis or biliary ductal dilatation. --- NUCLEAR HEPATOBILIARY SCAN CLINICAL HISTORY: Acute cholecystitis. COMPARISON STUDY: MRCP dated 06/07/2019. Abdominal ultrasound dated 06/07/2019. Abdominal CT dated 06/06/2019. TECHNIQUE: Dynamic images of the liver and anterior abdomen were obtained every 5 minutes for a total of 60 minutes following the IV administration of 5.5mCi of technetium 99m Choletec. FINDINGS: The hepatobiliary scan shows prompt and homogeneous hepatic uptake. There is visualized activity within the intra and extrahepatic biliary tree at 10 minutes, and within the gallbladder at 25 minutes. There is normal biliary to bowel transit, with small bowel visualized by 15 minutes. IMPRESSION: There is no scintigraphic evidence of cystic duct obstruction. The MRCP and ultrasound findings remain consistent with acute cholecystitis. Hospital Course (1) Choledocholithiasis: (2) Acute cholecystitis: Patient was transferred from [facility] with diagnosis of possible acute cholecystitis with possible choledocholithiasis. Patient was evaluated by both GI and general surgery. She underwent an MRCP which did not show any cystic or common bile duct obstruction. HIDA scan did not show any obstruction of the bile duct with normal function of the gallbladder. General surgery recommended that since the patient's LFTs were elevated that she wait for the inflammation to diminish and have an elective cholecystectomy in 4 to 6 weeks. Patient's diet was advanced and if she can tolerate a low-fat solid diet, plan will be to discharge today. She was given information to follow-up with general surgery in 4-6 weeks as directed. (3) Cerebellar atrophy: Stable, patient reports not taking any medication at home. Gets around in the wheelchair. (4) Anemia: Stable for now, continue to monitor. Total Time Total Time Spent Total Time Spent (In Minutes): Discharge preparation time in excess of 30 minutes. Discharge Plan Discharge Items Patient Disposition: Home - Self-Care Reason For Visit: ACUTE CHOLEDOCHOLITIAN Discharge Diagnosis: 1. Acute cholecystitis 2. Abnormal LFTs 3. Cerebellar atrophy by history Activity: Resume your previous activity Weightbearing: Full weightbearing Non-emergency contact: Primary Care Provider and Surgeon Call non-emergency contact if: your symptoms worsen, your pain is worsening and you have a fever Follow-up/Referrals: Luke Barlow MD [Physician] - (Make appointment in 4-6 weeks for elective gallbladder removal) Luke Sullivan MD [Primary Care Provider] - Diet: Low Fat Addtl Attending Provider Instructions: Surgical discharge instructions: - Advised low fat diet until gallbladder is removed - Take entire course of antibiotics as prescribed - Report back to emergency department if having increase in pain, fever, chills, nausea, vomiting. Pending Studies at Discharge: Yes Studies:: Follow with [facility] for hepatitis results. The surgeon or your primary care provider may help obtaining these results. Stand-Alone Forms: [facility], Smoking Cessation Medications and DC Order Discharge Orders: Discharge Order (Routine); Ordered 06/09/19 Ordered By: Dutch Torres Admission Data Admit Date/Time: 06/07/19 15:50 Attending Provider: Dutch Torres Admit Provider: Michael Mclean Primary Care Provider: Luke Sullivan Other Providers: Ki Murcia ; Luke Barlow
[2019-06-09 09:35] VITALS: PULSE 82
== END 2019-06-09 13:25 | disposition home or self-care (01) | DRG 446 ==
LOC: SUATTDRO 15:50 → 2S 15:50 → 2E 16:04